=== PATIENT | female | born 1970 | race Caucasian/White ===

== ENCOUNTER 2016-10-13 10:27 | Day surgery (SDC) | payer OTHER ==
[2016-10-13] VITALS (14 sets, daily range): BP systolic 126–160; BP diastolic 58–75; PULSE 67–88; RESP 15–25; Ht 165.1 cm; Wt 105.9 kg
[~2016-10-13] VITALS: Ht 165.1 cm; Wt 105.9 kg
[2016-10-13] MEDS ORDERED: BUPIVACAINE 0.25% (MPF) 30 ML INJ ONE (13:20)
[2016-10-13] MEDS ORDERED: CEFAZOLIN 1 GM INJ ONE (13:42)
[2016-10-13] MEDS ORDERED: ROCURONIUM 50 MG INJ ONE (13:42)
[2016-10-13] MEDS ORDERED: GLYCOPYRROLATE 0.4 MG INJ ONE (13:42)
[2016-10-13] MEDS ORDERED: NEOSTIGMINE 3 MG/3 ML SYRINGE ONE (13:42)
[2016-10-13] MEDS ORDERED: PROPOFOL 20 ML ONE (13:42)
[2016-10-13] MEDS ORDERED: DEXAMETHASONE 4 MG/ML 1 ML INJ ONE (13:43)
[2016-10-13] MEDS ORDERED: FENTAnyl 50 MCG/ML VIAL ONE ×2 (13:43→14:18)
[2016-10-13] MEDS ORDERED: MIDAZOLAM 1 MG/ML 2 ML INJ ONE (13:43)
[2016-10-13] MEDS ORDERED: ONDANSETRON 4 MG INJ ONE (13:43)
[2016-10-13] MEDS ORDERED: IPRATROPIUM (NEB) 0.5 MG/2.5 ML AMP HHN PRN (14:00)
[2016-10-13] MEDS ORDERED: DIPHENHYDRAMINE 50 MG INJ IV PRN (14:00)
[2016-10-13] MEDS ORDERED: HYDROmorphONE (0.2 MG/ML) 10ML SYG IV PRN ×3 (14:00)
[2016-10-13] MEDS ORDERED: TRIMETHOBENZAMIDE 100 MG/ML VIAL IM PRN (14:00)
[2016-10-13] MEDS ORDERED: ALBUTEROL 0.083% (NEB) 2.5 MG/3 ML AMP HHN PRN (14:00)
[2016-10-13] MEDS ORDERED: FENTAnyl 50 MCG/ML VIAL IV PRN ×3 (14:00)
[2016-10-13] MEDS ORDERED: ONDANSETRON 4 MG INJ IV PRN (14:00)
[2016-10-13] MEDS ORDERED: OXYCODONE/ACETAMINOPHEN (5/325) TAB PO PRN ×2 (14:00)
[2016-10-13] MEDS ORDERED: EPHEDrine SULFATE 50 MG/5 ML SYG IV PRN (14:00)
[2016-10-13] MEDS ORDERED: LABETALOL HCL 20MG INJ IV PRN (14:00)
[2016-10-13] MEDS ORDERED: MEPERIDINE 25 MG INJ IV PRN (14:00)
[2016-10-13] MEDS ORDERED: hydrALAzine 20 MG INJ IV PRN (14:00)
[2016-10-13] MEDS ORDERED: MIDAZOLAM 1 MG/ML 2 ML INJ IV PRN (14:00)
[2016-10-13] MEDS ORDERED: LABETALOL HCL 20MG INJ ONE (14:21)
[2016-10-13] MEDS ORDERED: SUGAMMADEX SODIUM 200 MG/2 ML VIAL IV ONE (14:37)
--- NOTE | 2016-10-13 14:50 | OPR ---
Date/Time of Note Date/Time of Note DATE: 10/13/16 TIME: 14:46 Operative Report Procedure Date: Oct 13, 2016 Preoperative Diagnosis symptomatic gallstones Postoperative Diagnosis same Operation Performed 1. laparoscopic cholecystectomy 2. therapeutic injection of subcutaneous marcaine Surgeon: Kathy STORM Anesthesia Type: general Estimated Blood Loss: 10 - 50 ml's Specimens gallbladder Grafts/Implants: none Complications: no Indications This is a 46-year-old female with traumatic gallstones. She required surgical excision of her gallbladder. Risks alternatives benefits and percent were discussed the patient. Patient's best understanding and consents to the operation. Procedure Description Patient is taken to the OR and prepped and draped in usual sterile fashion. Surgical timeout was performed. IV antibiotics are given. Infraumbilical transverse incision is made with a 15 blade. Dissection cautery was carried onto the fascia. The fascia was grasped with [place]'s and divided with curved Armstrong scissors. Balloon Sosa trocar is introduced and pneumoperitoneum is established. Midepigastric 12 mm optical trocar was placed under direct visualization. Right upper quadrant right upper flank 5 mm optical trochars were placed under direct visualization. Upon initial inspection there are some adhesions to the gallbladder which were taken down bluntly. The fundus of the gallbladder was grasped and the gallbladder was retracted in the lateral and outward direction. Lateral dissection was initiated with cautery to allow mobilization of the gallbladder. The cystic duct was carefully dissected out and the critical view was established. Due to the thickened cystic duct this was divided using a 35 mm echelon vascular stapler. The staple line was reinforced with clips. The cystic artery was divided with 3 clips proximal 1 clip distal. The gallbladder was taken of the gallbladder bed. There is good hemostasis. The gallbladder was retrieved using an Endo Catch bag. Further inspection of the liver revealed no architectural changes and did not want a liver wedge biopsy. The ports removed under direct visualization. Infraumbilical fascial incision was closed with [id number] 0 Vicryl suture. Skin was closed using skin dilcia. Therapeutic subcu times Marcaine was injected through the all port sites. Dry dressings were applied. Kathy STORM Oct 13, 2016 14:49
[2016-10-13] MEDS ORDERED: HYDROCODONE/APAP (5/325) TAB PO ONE (15:00)
== END 2016-10-13 17:37 | disposition home or self-care (01) ==
LOC: SDS 10:27
PROVIDERS: ATTEND Surgery
DX: K80.10 Calculus of gallbladder with chronic cholecystitis without obstruction (principal)
CPT/HCPCS: 47562; 88304; J0690; J1100; J1170; J2175; J2250; J2405; J2710; J3010; Z7512; Z7610

== ENCOUNTER 2016-11-08 06:05 | Inpatient (IN) | payer OTHER ==
[~2016-11-08] VITALS: Ht 162.6 cm; Wt 105.8 kg
[2016-11-08] MEDS ORDERED: KETOROLAC 30 MG INJ IV STA (06:27)
[2016-11-08] MEDS ORDERED: ONDANSETRON 4 MG INJ IV STA (06:27)
--- NOTE | 2016-11-08 07:27 | ERA ---
ER Documentation Chief Complaint Date/Time DATE: 11/08/16 TIME: 07:25 Chief Complaint BIBA abd pain, hx of cholecystectomy; denies N/V HPI 46-year-old female brought in by ambulance complaining of epigastric and right upper quadrant abdominal pain since 2 AM this morning. Patient had recent history of cholecystectomy on 10/13/2016. Patient stated that she had not had abdominal pain since cholecystectomy until this morning. Pain is constant and burning like, similar to her pain prior to cholecystectomy. Her last meal was a ham sandwich at 530 previous evening. Denies fever or chills. Denies vomiting or diarrhea. Denies dysuria. Denies tobacco or alcohol use. ROS All systems reviewed and are negative except as per history of present illness. Medications Home Meds No Active Prescriptions or Reported Meds Allergies Allergies: Coded Allergies: No Known Allergy (Unverified , 10/13/16) PMhx/Soc History of Surgery: Yes Anesthesia Reaction: No Hx Neurological Disorder: No Hx Respiratory Disorders: No Hx Cardiac Disorders: No Hx Psychiatric Problems: No Hx Miscellaneous Medical Probl: No Hx Alcohol Use: No Hx Substance Use: No Hx Tobacco Use: No Physical Exam Vitals Vital Signs Date Time Temp Pulse Resp B/P Pulse Ox O2 Delivery O2 Flow Rate FiO2 11/08/16 06:11 98.6 58 20 129/61 98 Physical Exam General: Well-developed, well-nourished, conscious and coherent, in no distress Skin: Warm and dry without rash, good texture and turgor Head: Normocephalic without evidence of trauma Eyes: Sclera and conjunctivae normal; pupils equal, round, and reactive to light; extraocular movements are intact Chest: Normal AP diameter. Good expansion without retractions. Nontender. Lungs are clear to auscultate bilaterally with good tidal volume Heart: Regular rate and rhythm. No murmur, rub, or gallops heard Abdomen: Soft, right upper quadrant tenderness without masses, guarding, or rebound. Bowel sounds are active. No hepatosplenomegaly Back: Without spinal or CVA tenderness Pelvis: Nontender to palpation and stable to compression Extremities: Full range of motion. Good strength bilaterally. No clubbing, cyanosis, or edema. Peripheral pulses are intact. Sensation intact Neuro: Alert and oriented 4, GCS 15. Cranial nerves grossly intact. Motor and sensory exams nonfocal. Moves all extremities. Speech clear. Gait normal Result Diagram: 11/08/16 0704 11/08/16 0704 Results 24 hrs Laboratory Tests Test 11/08/16 06:50 11/08/16 07:04 Urine Color YELLOW Urine Clarity CLOUDY Urine pH 5.0 Urine Specific [place] 1.027 Urine Ketones NEGATIVEmg/dL Urine Nitrite NEGATIVEmg/dL Urine Bilirubin NEGATIVEmg/dL Urine Urobilinogen 1+mg/dL Urine Leukocyte Esterase NEGATIVELeu/ul Urine Microscopic RBC 45/HPF Urine Microscopic WBC 23/HPF Urine Squamous Epithelial Cells MODERATE/HPF Urine Mucus FEW/HPF Urine Hemoglobin NEGATIVEmg/dL Urine Glucose NEGATIVEmg/dL Urine Total Protein NEGATIVEmg/dl White Blood Count 7.810^3/ul Red Blood Count 4.2310^6/ul Hemoglobin 11.0g/dl Hematocrit 35.3% Mean Corpuscular Volume 83.5fl Mean Corpuscular Hemoglobin 26.0pg Mean Corpuscular Hemoglobin Concent 31.2g/dl Red Cell Distribution Width 15.0% Platelet Count 50899^3/UL Mean Platelet Volume 9.7fl Neutrophils % 62.7% Lymphocytes % 24.5% Monocytes % 7.7% Eosinophils % 3.6% Basophils % 0.5% Nucleated Red Blood Cells % 0.0/100WBC Neutrophils # 4.910^3/ul Lymphocytes # 1.910^3/ul Monocytes # 0.610^3/ul Eosinophils # 0.310^3/ul Basophils # 0.010^3/ul Nucleated Red Blood Cells # 0.010^3/ul Sodium Level 142mmol/L Potassium Level 4.1mmol/L Chloride Level 106mmol/L Carbon Dioxide Level 26mmol/L Anion Gap 14 Blood Urea Nitrogen 16mg/dl Creatinine 0.54mg/dl Glucose Level 128mg/dl Calcium Level 9.2mg/dl Total Bilirubin 0.4mg/dl Direct Bilirubin 0.00mg/dl Indirect Bilirubin 0.4mg/dl Aspartate Amino Transf (AST/SGOT) 137IU/L Alanine Aminotransferase (ALT/SGPT) 116IU/L Alkaline Phosphatase 102IU/L Total Protein 7.7g/dl Albumin 4.4g/dl Globulin 3.30g/dl Albumin/Globulin Ratio 1.33 Lipase 1690U/L Current Medications Medications (Trade) Dose Ordered Sig/Freedom Route PRN Reason Start Time Stop Time Status Last Admin Dose Admin Ketorolac Tromethamine (Toradol) 30 mg ONCE STAT IV 11/08/16 06:27 11/08/16 06:28 DC 11/08/16 07:04 Ondansetron HCl 4 mg 4 mg ONCE STAT IV 11/08/16 06:27 11/08/16 06:28 DC 11/08/16 07:04 Ampicillin Sodium/ Sulbactam Sodium 100 ml @ 100 mls/hr ONCE ONCE IVPB 11/08/16 08:30 11/08/16 09:29 Sodium Chloride (NS) 1,000 ml @ 1,000 mls/hr Q1H STAT IV 11/08/16 08:10 11/08/16 09:09 PROCEDURE: US right upper quadrant abdomen. CLINICAL INDICATION: Abdominal pain TECHNIQUE: Multiple real-time images were acquired of the patient's right upper quadrant abdomen utilizing a high resolution transducer. COMPARISON: None FINDINGS: The liver demonstrates increased echogenicity and enlarged size measuring 20.6 cm without focal lesions. Patent portal vein. Gallbladder is surgically absent. No intrahepatic or extrahepatic biliary dilatation. The common bile duct measures 5 mm in maximal dimension. The visualized portions of the pancreas are normal. The right kidney is normal size with normal echogenicity and morphology. The right kidney measures 11.5 cm. No hydronephrosis or perinephric fluid collections. There are no areas of increased echogenicity to suggest nephrolithiasis. Normal caliber aorta and IVC. No peritoneal free fluid. IMPRESSION: Enlarged echogenic liver consistent with fatty infiltration. Post cholecystectomy. RPTAT:AAJJ Physician Bhanu Date Time Electronically viewed and signed by Physician Bhanu on 11/08/2016 07 :40 MH/ CC: CONNOR ROSA ENGINEER FIRST ASSISTANT Procedures/MDM 46-year-old female with recent history of cholecystectomy presents the ED today for severe, sudden onset epigastric and right upper quadrant abdominal pain. Gallbladder ultrasound showed a enlarged echogenic liver consistent with fatty infiltration, gallbladder surgically absent, common bile duct distended. The visualized portion of the pancreas are normal. No hydronephrosis or your lithiasis are seen. CBC is unremarkable. Patient's LFTs elevated with AST 137, and ALT 116. Lipase is markedly elevated at 1690. Patient likely have developed acute pancreatitis. She will need to be admitted for further management. Patient is given Toradol IV in the ED for pain, patient reports pain relief after Toradol. She is signed out to Dr. Boston for admission. Condition: Stable CONNOR ROSA NP Nov 08, 2016 07:27
[2016-11-08 07:30] LABS: BASOPHILS % 0.5 % (0.0-2.0); EOSINOPHILS # 0.3 10^3/ul (0.0-0.5); EOSINOPHILS % 3.6 % (0.0-7.0); HEMATOCRIT 35.3 % (37.0-47.0); LYMPHOCYTES # 1.9 10^3/ul (0.8-2.9); LYMPHOCYTES % 24.5 % (15.0-51.0); MEAN CORPUSCULAR HGB CONC 31.2 g/dl (32.0-37.0); MEAN CORPUSCULAR VOLUME 83.5 fl (82.0-101.0); MEAN PLATELET VOLUME 9.7 fl (7.4-10.4); MONOCYTE # 0.6 10^3/ul (0.3-0.9); MONOCYTES % 7.7 % (0.0-11.0); NEUTROPHIL # 4.9 10^3/ul (1.6-7.5); NEUTROPHILS % 62.7 % (39.0-77.0); PLATELET COUNT 169 10^3/UL (140-415); RED BLOOD COUNT 4.23 10^6/ul (4.20-5.40); WHITE BLOOD COUNT 7.8 10^3/ul (4.8-10.8)
--- NOTE | 2016-11-08 07:40 | RADRPT ---
PROCEDURE: US right upper quadrant abdomen. CLINICAL INDICATION: Abdominal pain TECHNIQUE: Multiple real-time images were acquired of the patient's right upper quadrant abdomen utilizing a high resolution transducer. COMPARISON: None FINDINGS: The liver demonstrates increased echogenicity and enlarged size measuring 20.6 cm without focal lesi ons. Patent portal vein. Gallbladder is surgically absent. No intrahepatic or extrahepatic biliary d ilatation. The common bile duct measures 5 mm in maximal dimension. The visualized portions of the pancreas are normal. The right kidney is normal size with normal echogenicity and morphology. The right kidney measures 11.5 cm. No hydronephrosis or perinephric fluid collections. There are no ar eas of increased echogenicity to suggest nephrolithiasis. Normal caliber aorta and IVC. No peritonea l free fluid. IMPRESSION: Enlarged echogenic liver consistent with fatty infiltration. Post cholecystectomy. RPTAT:AAJJ Physician Bhanu Date Time Electronically viewed and signed by Physician Bhanu on 11/08/2016 07:40 /
[2016-11-08 07:42] LABS: ALBUMIN 4.4 g/dl (3.3-4.9); ALBUMIN/GLOBULIN RATIO 1.33; BILIRUBIN,INDIRECT 0.4 mg/dl (0-1.1); BILIRUBIN,TOTAL 0.4 mg/dl (0.2-1.3); CALCIUM 9.2 mg/dl (8.4-10.2); CREATININE 0.54 mg/dl (0.44-1.00); POTASSIUM 4.1 mmol/L (3.5-5.1); TOTAL PROTEIN 7.7 g/dl (6.1-8.1)
[2016-11-08 07:45] LABS: ADD UMIC YES; UR ASCORBIC ACID NEGATIVE (NEGATIVE); UR BILIRUBIN (Dip) NEGATIVE (NEGATIVE); UR BLOOD (Dip) NEGATIVE (NEGATIVE); UR CLARITY CLOUDY (CLEAR); UR COLOR YELLOW (YELLOW); UR GLUCOSE (Dip) NEGATIVE (NEGATIVE); UR KETONES (Dip) NEGATIVE (NEGATIVE); UR LEUKOCYTE ESTERASE (Dip) NEGATIVE Leu/ul (NEGATIVE); UR MUCUS FEW /HPF (NONE SEEN); UR NITRITE (Dip) NEGATIVE (NEGATIVE); UR NONSQUAMOUS EPITHELIAL CELL 18 /HPF (NONE SEEN); UR RBC 45 /HPF (0-5); UR SPECIFIC GRAVITY (Dip) 1.027 (1.003-1.030); UR SQUAMOUS EPITHELIAL CELL MODERATE /HPF (FEW); UR TOTAL PROTEIN (Dip) NEGATIVE (NEGATIVE); UR UROBILINOGEN (Dip) 1+ mg/dL (NEGATIVE)
[2016-11-08] MEDS ORDERED: SOD CHLORIDE 0.9% 1,000 ML IV STA (08:10)
[2016-11-08] MEDS ORDERED: AMPICILLIN/SULB 3 GM/NS (PMX) 100 ML IVPB ONE (08:30)
[2016-11-08] MEDS ORDERED: ONDANSETRON 4 MG INJ IV PRN ×2 (09:00→09:30)
[2016-11-08] MEDS ORDERED: ACETAMINOPHEN 325 MG TAB PO PRN (09:00)
[2016-11-08] MEDS ORDERED: morphine 2 MG INJ IV PRN (09:30)
[2016-11-08] MEDS ORDERED: NACL 0.9% 3 ML SYG IV SCH (09:30)
[2016-11-08 10:16] VITALS: TEMP 99
--- NOTE | 2016-11-08 10:17 | HP ---
Date/Time of Note Date/Time of Note DATE: 11/08/16 TIME: 10:12 Assessment/Plan VTE Prophylaxis VTE Prophylaxis Intervention: SCD's Assessment/Plan Chief Complaint/Hosp Course 1. Acute abdominal pain. Evidence of acute pancreatitis. The patient has prior history of cholelithiasis and the patient is status post laparoscopic cholecystectomy. The patient will be evaluated for any underlying choledocholithiasis. The patient denies any history of alcohol abuse. The patient will also be evaluated for any underlying hypertriglyceridemia. Patient will be kept n.p.o. The patient will be aggressively hydrated using IV fluids. The patient will be provided with adequate pain control. Surgery consult has been obtained. 2. Transaminitis without hyperbilirubinemia. Most probably secondary to #1. Continue management as per #1. 3. Positive urinalysis. The patient denied any urinary symptoms. Will not start any antibiotics unless the patient has symptoms of urinary tract infection. 4. Hypertension. The patient verbalized episodic hypertension. The patient does not take any medications regularly at home. We will monitor the patient's blood pressure closely. Plan: The patient will be admitted to inpatient medical/surgical floor. The patient will be kept NPO. The patient will be started on DVT prophylaxis. The patient will remain a full code. Activities will be as tolerated. The rest of the patient's management will be based on the clinical course, inputs from consultants, and the results of diagnostic studies. Based on the patient's clinical presentation, he most probably requires at least 1 midnight's stay for further management and evaluation of his clinical presentation. The case and management of this patient was fully discussed with Dr. Mayberry. Problems: HPI/ROS Admit Date/Time Admit Date/Time Hx of Present Illness Reason for admission: Abdominal pain. Consultants 1. Marlon Helton MD, General Surgery. This is a 46-year-old [place] female with past medical history of symptomatic cholelithiasis status post laparoscopic cholecystectomy on 10/13/2016. The patient had an uneventful postoperative course until the morning of 11/08/2016. On the morning of 11/08/2016, the patient woke up from sleep because of epigastric abdominal pain with radiation to the back that was rated 10/10. There was no associated nausea or vomiting. There was no diarrhea or constipation. The patient denied any fevers, chills,, dysuria, or hematuria. In the emergency room, the patient underwent a gallbladder ultrasound that showed enlarged echogenic liver consistent with fatty infiltration. The gallbladder was surgically absent and there was no evidence of any intra-or extrahepatic biliary dilatation with the common bile duct measuring 5 mm in maximal dimension. The patient had elevated AST and ALT without any evidence of any elevated bilirubin. The patient had a lipase level of 1690. Patient was treated with IV fluids along with analgesics and a single dose Unasyn in the ER. ROS Constitutional: no complaints Eyes: no complaints ENT: no complaints Respiratory: no complaints Cardiovascular: no complaints Gastrointestinal: pain Genitourinary: no complaints Musculoskeletal: no complaints Skin: no complaints Neurologic: no complaints Endocrine: no complaints Lymphatic: no complaints Psychological: no complaints Immunologic: no complaints PMH/Family/Social Past Medical History Medical History: hypertension Past Surgical History Past Surgical Hx: cholecystectomy Social History Alcohol Use: none Smoking Status: Never smoker Drug Use: none Exam/Review of Systems Vital Signs Vitals Vital Signs Date Time Temp Pulse Resp B/P Pulse Ox O2 Delivery O2 Flow Rate FiO2 11/08/16 06:11 98.6 58 20 129/61 98 Exam Exam General: Obese, 46 year-old female lying in bed in no apparent distress. HEENT: Normocephalic, atraumatic. Eyes: Anicteric sclerae, conjunctivae clear. ENT: Nasal septum midline, oral mucosa moist. Neck supple, no JVD noticed. Respiratory: Bilaterally clear breath sounds. No use of accessory muscles of respiration. No adventitious breath sounds. Cardiovascular: S1, S2 heard. No murmurs or gallops. Abdomen: Soft, nontender, and nondistended. Bowel sounds positive in all 4 quadrants. Genitourinary: Deferred. Extremities: No cyanosis, no clubbing, no edema. Peripheral pulses palpable. Neurologic: Cranial nerves II through XII grossly intact. The patient is awake, alert, and oriented. Skin: Normal skin turgor. No skin rashes. Labs Result Diagram: 11/08/16 0704 11/08/16 07 Medications Medications Current Medications Sodium Chloride (NS) 1,000 ml @ 125 mls/hr Q8H IV ; Start 11/08/16 at 10:00 Ondansetron HCl (Zofran Inj) 4 mg Q6H PRN IV NAUSEA AND/OR VOMITING; Start 11/08/16 at 09:30 Acetaminophen/ Hydrocodone Bitart ([place] (5/325)) 1 tab Q6H PRN PO MODERATE PAIN LEVEL 4-6; Start 11/08/16 at 09:30 Morphine Sulfate 2 mg 2 mg Q4H PRN IV SEVERE PAIN LEVEL 7-10; Start 11/08/16 at 09:30 Ceftriaxone Sodium (Rocephin) 50 ml @ 100 mls/hr Q24H IVPB ; Start 11/08/16 at 11:00 Procedures Procedures Gall Bladder Ultrasound IMPRESSION: Enlarged echogenic liver consistent with fatty infiltration. Post cholecystectomy. DOMINIQUE ORELLANA NP Nov 08, 2016 10:17
[2016-11-08 10:30] VITALS: BP 123/58; PULSE 51; RESP 18
[2016-11-08 10:40] VITALS: Ht 162.6 cm; Wt 105.8 kg
[2016-11-08] MEDS ORDERED: CEFTRIAXONE 1 GM/50 ML (PMX) 50 ML IVPB SCH (11:00)
[2016-11-08] MEDS: SOD CHLORIDE 0.9% 1,000 ML IV SCH ×3 (11:56→19:39)
[2016-11-08 14:26] VITALS: BP 119/59; RESP 17
[2016-11-08 14:35] LABS: CHOL/HDL RATIO 6.8 RATIO
--- NOTE | 2016-11-08 17:54 | CONS ---
DATE OF ADMISSION: 11/08/2016 DATE OF CONSULTATION: 11/08/2016 REASON FOR CONSULTATION: This is a 46-year-old female who had acute abdominal pain. She was found on examination and evaluation to have pancreatitis. She had a recent laparoscopic cholecystectomy approximately a month ago. She was evaluated with an ultrasound, which did not show any dilated bile ducts. General Surgery was consulted for evaluation. She denies any vomiting; however, some nausea and acute abdominal pain. No fevers. PAST MEDICAL HISTORY: Hypertension. PAST SURGICAL HISTORY: Laparoscopic cholecystectomy. ALLERGIES: NO KNOWN DRUG ALLERGIES. SOCIAL HISTORY: Denies any smoking or alcohol use. LABORATORY: White blood cell count is 7.8, hemoglobin 11.0, platelet count is 169. Chemistry: Sodium is 142, potassium 4.1, chloride 106, CO2 is 26, BUN 16, creatinine 0.5, glucose 128. T- bili of 0.4, AST is 137, ALT is 115, alk phosphatase is 102. Lipase is 1690, triglycerides of 228. Ultrasound imaging shows gallbladder is absent. No intrahepatic or extrahepatic biliary dilatation. Common bile duct measures 5 mm. PHYSICAL EXAMINATION: GENERAL: A well-nourished female, morbidly obese, with BMI of 40 kg/m2, in no acute distress. VITAL SIGNS: Temperature is 98.0, pulse 60, respiratory rate is 17, blood pressure is 119/59. HEENT: PERRLA, EOMI. HEART: Regular rate and rhythm. ABDOMEN: There is mid epigastric tenderness. No peritoneal signs. No rebound tenderness. EXTREMITIES: Warm. No cyanosis. NEUROLOGICAL: Grossly intact. IMPRESSION AND PLAN: This is a 46-year-old female who had laparoscopic cholecystectomy approximately 1 month ago, presenting with now acute pancreatitis, mild. She had an ultrasound, which did not show any choledocholithiasis or any bile duct dilatation. She is undergoing magnetic resonance cholangiopancreatography for a thorough evaluation. Most likely, this is due to her hypertriglyceridemia; however, would agree with magnetic resonance cholangiopancreatography for further evaluation. General Surgery will continue to follow and keep patient n.p.o. with IV fluids. Dictated By: Hazel Turner /jessy/mingo /Document#: [id number]
[2016-11-08 20:28] VITALS: BP 146/69; RESP 20
[2016-11-08 21:37] LABS: IRON 77 ug/dl (35-150)
[2016-11-08 21:47] LABS: TOTAL IRON BINDING CAPACITY 292 ug/dl (241-421)
[2016-11-09 02:16] VITALS: BP 139/68; RESP 18
[2016-11-09] MEDS: SOD CHLORIDE 0.9% 1,000 ML IV SCH ×4 (04:46→22:23)
[2016-11-09 05:41] LABS: BASOPHILS % 0.5 % (0.0-2.0); EOSINOPHILS # 0.2 10^3/ul (0.0-0.5); EOSINOPHILS % 4.3 % (0.0-7.0); HEMATOCRIT 32.8 % (37.0-47.0); HEMOGLOBIN 10.1 g/dl (12.0-16.0); LYMPHOCYTES # 1.8 10^3/ul (0.8-2.9); MEAN CORPUSCULAR HEMOGLOBIN 25.7 pg (29.0-33.0); MEAN CORPUSCULAR HGB CONC 30.8 g/dl (32.0-37.0); MEAN CORPUSCULAR VOLUME 83.5 fl (82.0-101.0); MEAN PLATELET VOLUME 9.8 fl (7.4-10.4); MONOCYTE # 0.3 10^3/ul (0.3-0.9); MONOCYTES % 5.7 % (0.0-11.0); NEUTROPHIL # 3.2 10^3/ul (1.6-7.5); NEUTROPHILS % 56.6 % (39.0-77.0); PLATELET COUNT 130 10^3/UL (140-415); RED BLOOD COUNT 3.93 10^6/ul (4.20-5.40); RED CELL DISTRIBUTION WIDTH 14.8 % (11.5-14.5); WHITE BLOOD COUNT 5.6 10^3/ul (4.8-10.8)
[2016-11-09 06:00] LABS: ALBUMIN 3.7 g/dl (3.3-4.9); ALBUMIN/GLOBULIN RATIO 1.27; BILIRUBIN,INDIRECT 0.5 mg/dl (0-1.1); BILIRUBIN,TOTAL 0.5 mg/dl (0.2-1.3); CALCIUM 8.4 mg/dl (8.4-10.2); CREATININE 0.57 mg/dl (0.44-1.00); POTASSIUM 3.8 mmol/L (3.5-5.1); TOTAL PROTEIN 6.6 g/dl (6.1-8.1)
--- NOTE | 2016-11-09 08:00 | RADRPT ---
PROCEDURE: MRCP. CLINICAL INDICATION: Abdominal pain, pancreatitis. TECHNIQUE: MRCP was performed. Patient was examined without contrast. 3-D coronal rotating MIP i mages of the biliary tree are available for review. COMPARISON: Ultrasound, 11/08/2016 FINDINGS: The gallbladder is surgically absent. There is no intra or extrahepatic biliary dilatation. No commo n duct stone, stricture or filling defect is identified. Pancreatic duct is normal in caliber. Hepatomegaly (21 cm) and splenomegaly (14 cm) are noted, without evidence of focal mass. Trace amoun t of peripancreatic edema is seen, concerning for mild acute pancreatitis. No evidence of focal panc reatic mass is identified. Adrenal glands and kidneys are unremarkable except for small benign renal cysts. There is no obstructive uropathy. The stomach is partially collapsed, but appears grossly unremarkable. Abdominal aorta is normal in c aliber. There is no retroperitoneal or chika hepatis lymphadenopathy. Small amount of upper abdomina l ascites is present. No bowel obstruction or abscess is identified. The surrounding osseous structu res are remarkable for degenerative enthesopathy of the spine. IMPRESSION: 1. Gallbladder is surgically absent. No biliary dilatation or choledocholithiasis is identified. 2. Hepatosplenomegaly is noted, without evidence of focal mass. 3. Trace amount of peripancreatic edema is seen, concerning for mild acute pancreatitis - correlate with serum enzymes. 4. Small amount of upper abdominal ascites is noted. RPTAT: AAOO .Tai Lee MD, Date Time Electronically viewed and signed by .Tai Lee MD, MD on 11/09/2016 07:59 .R/
[2016-11-09 08:05] VITALS: BP 118/56; RESP 18
[2016-11-09] MEDS: HYDROCODONE/APAP (5/325) TAB PO PRN ×2 (11:44→17:40)
[2016-11-09] MEDS ORDERED: INFLUENZA VIRUS VACCINE 0.5 ML SYG IM* ONE (12:00)
--- NOTE | 2016-11-09 13:47 | PN ---
Date/Time of Note Date/Time of Note DATE: 11/09/16 TIME: 13:45 Assessment/Plan VTE Prophylaxis VTE Prophylaxis Intervention: SCD's Lines/Catheters IV [facility] Peripheral IV Urinary Cath still in place: No Assessment/Plan Chief Complaint/Hosp Course s/p lap jose m one month ago with acute pancreatitis without evidence of biliary etiology advance diet as tolerated and possible dc tomorrow Problems: Subjective 24 Hr Interval Summary Free Text/Dictation MRCP negative for biliary etiology for pancreatitis, no nausea no vomiting Exam/Review of Systems Vital Signs Vitals Vital Signs Date Time Temp Pulse Resp B/P Pulse Ox O2 Delivery O2 Flow Rate FiO2 11/09/16 08:05 98.4 63 18 118/56 95 11/08/16 10:30 Room Air Intake and Output 11/08/16 11/08/16 11/09/16 15:00 23:00 07:00 Intake Total 1000 ml 1050 ml Balance 1000 ml 1050 ml Exam abd soft nontender Results Result Diagram: 11/09/16 0511 11/09/16 0508 Results 24 hrs Laboratory Tests Test 11/09/16 05:08 11/09/16 05:11 Sodium Level 143 Potassium Level 3.8 Chloride Level 109 Carbon Dioxide Level 27 Anion Gap 11 Blood Urea Nitrogen 10 Creatinine 0.57 Glucose Level 91 Calcium Level 8.4 Phosphorus Level 3.6 Magnesium Level 1.8 Total Bilirubin 0.5 Direct Bilirubin 0.00 Indirect Bilirubin 0.5 Aspartate Amino Transf (AST/SGOT) 155 H Alanine Aminotransferase (ALT/SGPT) 274 H Alkaline Phosphatase 107 Total Protein 6.6 # Albumin 3.7 Globulin 2.90 Albumin/Globulin Ratio 1.27 Amylase Level 37 Lipase 48 White Blood Count 5.6 # Red Blood Count 3.93 L Hemoglobin 10.1 L Hematocrit 32.8 L Mean Corpuscular Volume 83.5 Mean Corpuscular Hemoglobin 25.7 L Mean Corpuscular Hemoglobin Concent 30.8 L Red Cell Distribution Width 14.8 H Platelet Count 130 #L Mean Platelet Volume 9.8 Neutrophils % 56.6 Lymphocytes % 32.0 Monocytes % 5.7 Eosinophils % 4.3 Basophils % 0.5 Nucleated Red Blood Cells % 0.0 Neutrophils # 3.2 Lymphocytes # 1.8 Monocytes # 0.3 Eosinophils # 0.2 Basophils # 0.0 Nucleated Red Blood Cells # 0.0 Medications Medications Current Medications Sodium Chloride (NS) 1,000 ml @ 150 mls/hr Q6H40M IV Last administered on 11/09 13:08; Admin Dose 150 MLS/HR; Start 11/08/16 at 10:00 Ondansetron HCl (Zofran Inj) 4 mg Q6H PRN IV NAUSEA AND/OR VOMITING; Start 11/08/16 at 09:30 Acetaminophen/ Hydrocodone Bitart ([place] (5/325)) 1 tab Q6H PRN PO MODERATE PAIN LEVEL 4-6 Last administered on 11/09/16 11:44; Admin Dose 1 TAB; Start at 09:30 Morphine Sulfate (morphine) 2 mg Q4H PRN IV SEVERE PAIN LEVEL 7-10; Start 11/08 at 09:30 Kathy STORM Nov 09, 2016 13:47
--- NOTE | 2016-11-09 13:56 | PN ---
Date/Time of Note Date/Time of Note DATE: 11/09/16 TIME: 13:53 Assessment/Plan VTE Prophylaxis VTE Prophylaxis Intervention: SCD's Lines/Catheters IV [facility]ter Type (from [facility]): Peripheral IV Urinary Cath still in place: No Assessment/Plan Chief Complaint/Hosp Course 1. Acute pancreatitis. Etiology unclear. MRCP negative for any choledocholithiasis. The patient is status post cholecystectomy. The patient has no history of any EtOH abuse. The patient was noted to have underlying hypertriglyceridemia (228), which is unlikely to cause acute pancreatitis. Pancreatic enzyme levels has been normalized. To be started on a diet. Surgery following. Will reinforce a low-cholesterol diet. Obtain dietary consult. 2. Transaminitis without hyperbilirubinemia. Most probably secondary to #1. Continue management as per #1. 3. Positive urinalysis. The patient denied any urinary symptoms. Will not start any antibiotics unless the patient has symptoms of urinary tract infection. 4. Hypertension. The patient verbalized episodic hypertension. The patient does not take any medications regularly at home. We will monitor the patient's blood pressure closely. 5. Dyslipidemia. Low-cholesterol diet advised. Registered dietitian to see the patient. 6. Obesity. Weight reduction advised. 7. Fluids, electrolytes, and nutrition. Continue IV hydration. To start the patient on a soft diet. 8. Plan. Continue IV hydration. Start the patient on soft diet and advance as tolerated. Trend LFTs and pancreatic enzymes. Dietary consult. Case discussed with Dr. Mayberry. Problems: Subjective 24 Hr Interval Summary Free Text/Dictation Denies any abdominal pain. Denies nausea or vomiting. Exam/Review of Systems Vital Signs Vitals Vital Signs Date Time Temp Pulse Resp B/P Pulse Ox O2 Delivery O2 Flow Rate FiO2 11/09/16 08:05 98.4 63 18 118/56 95 11/08/16 10:30 Room Air Intake and Output 11/08/16 11/08/16 11/09/16 15:00 23:00 07:00 Intake Total 1000 ml 1050 ml Balance 1000 ml 1050 ml Exam General: Obese, 46 year-old female lying in bed in no apparent distress. HEENT: Normocephalic, atraumatic. Eyes: Anicteric sclerae, conjunctivae clear. ENT: Nasal septum midline, oral mucosa moist. Neck supple, no JVD noticed. Respiratory: Bilaterally clear breath sounds. No use of accessory muscles of respiration. No adventitious breath sounds. Cardiovascular: S1, S2 heard. No murmurs or gallops. Abdomen: Soft, nontender, and nondistended. Bowel sounds positive in all 4 quadrants. Genitourinary: Deferred. Extremities: No cyanosis, no clubbing, no edema. Peripheral pulses palpable. Neurologic: Cranial nerves II through XII grossly intact. The patient is awake, alert, and oriented. Skin: Normal skin turgor. No skin rashes. Results Result Diagram: 11/09/16 0511 11/09/16 0508 Results 24 hrs Laboratory Tests Test 11/09/16 05:08 11/09/16 05:11 Sodium Level 143 Potassium Level 3.8 Chloride Level 109 Carbon Dioxide Level 27 Anion Gap 11 Blood Urea Nitrogen 10 Creatinine 0.57 Glucose Level 91 Calcium Level 8.4 Phosphorus Level 3.6 Magnesium Level 1.8 Total Bilirubin 0.5 Direct Bilirubin 0.00 Indirect Bilirubin 0.5 Aspartate Amino Transf (AST/SGOT) 155 H Alanine Aminotransferase (ALT/SGPT) 274 H Alkaline Phosphatase 107 Total Protein 6.6 # Albumin 3.7 Globulin 2.90 Albumin/Globulin Ratio 1.27 Amylase Level 37 Lipase 48 White Blood Count 5.6 # Red Blood Count 3.93 L Hemoglobin 10.1 L Hematocrit 32.8 L Mean Corpuscular Volume 83.5 Mean Corpuscular Hemoglobin 25.7 L Mean Corpuscular Hemoglobin Concent 30.8 L Red Cell Distribution Width 14.8 H Platelet Count 130 #L Mean Platelet Volume 9.8 Neutrophils % 56.6 Lymphocytes % 32.0 Monocytes % 5.7 Eosinophils % 4.3 Basophils % 0.5 Nucleated Red Blood Cells % 0.0 Neutrophils # 3.2 Lymphocytes # 1.8 Monocytes # 0.3 Eosinophils # 0.2 Basophils # 0.0 Nucleated Red Blood Cells # 0.0 Medications Medications Current Medications Sodium Chloride (NS) 1,000 ml @ 150 mls/hr Q6H40M IV Last administered on 11/09t 13:08; Admin Dose 150 MLS/HR; Start 11/08/16 at 10:00 Ondansetron HCl (Zofran Inj) 4 mg Q6H PRN IV NAUSEA AND/OR VOMITING; Start 11/08/16 at 09:30 Acetaminophen/ Hydrocodone Bitart ([place] (5/325)) 1 tab Q6H PRN PO MODERATE PAIN LEVEL 4-6 Last administered on 11/09/16t 11:44; Admin Dose 1 TAB; Start at 09:30 Morphine Sulfate (morphine) 2 mg Q4H PRN IV SEVERE PAIN LEVEL 7-10; Start 11/08 at 09:30 DOMINIQUE ORELLANA NP Nov 09, 2016 13:56
[2016-11-09 14:03] VITALS: BP 126/61; RESP 16
[2016-11-09 20:10] VITALS: BP 118/61; RESP 18
[2016-11-10] MEDS: SOD CHLORIDE 0.9% 1,000 ML IV SCH ×2 (02:01→08:26)
[2016-11-10 02:06] VITALS: BP 118/61; RESP 18
[2016-11-10 07:24] LABS: BASOPHILS % 0.4 % (0.0-2.0); EOSINOPHILS # 0.3 10^3/ul (0.0-0.5); EOSINOPHILS % 6.1 % (0.0-7.0); HEMOGLOBIN 9.9 g/dl (12.0-16.0); LYMPHOCYTES # 1.6 10^3/ul (0.8-2.9); LYMPHOCYTES % 29.3 % (15.0-51.0); MEAN CORPUSCULAR HEMOGLOBIN 25.6 pg (29.0-33.0); MEAN CORPUSCULAR HGB CONC 30.9 g/dl (32.0-37.0); MEAN CORPUSCULAR VOLUME 82.7 fl (82.0-101.0); MEAN PLATELET VOLUME 9.5 fl (7.4-10.4); MONOCYTE # 0.4 10^3/ul (0.3-0.9); MONOCYTES % 6.6 % (0.0-11.0); NEUTROPHIL # 3.2 10^3/ul (1.6-7.5); NEUTROPHILS % 56.7 % (39.0-77.0); PLATELET COUNT 134 10^3/UL (140-415); RED BLOOD COUNT 3.87 10^6/ul (4.20-5.40); WHITE BLOOD COUNT 5.6 10^3/ul (4.8-10.8)
[2016-11-10 07:40] VITALS: BP 124/62; RESP 18
[2016-11-10 07:52] LABS: MAGNESIUM 1.8 mg/dl (1.7-2.5); PHOSPHORUS 3.7 mg/dl (2.5-4.9)
[2016-11-10 07:54] LABS: ALBUMIN 3.6 g/dl (3.3-4.9); ALBUMIN/GLOBULIN RATIO 1.12; BILIRUBIN,INDIRECT 0.2 mg/dl (0-1.1); BILIRUBIN,TOTAL 0.2 mg/dl (0.2-1.3); CALCIUM 8.9 mg/dl (8.4-10.2); CREATININE 0.52 mg/dl (0.44-1.00); POTASSIUM 3.6 mmol/L (3.5-5.1); TOTAL PROTEIN 6.8 g/dl (6.1-8.1)
--- NOTE | 2016-11-10 12:04 | PDOCDIS ---
Discharge Instructions DIAGNOSIS Discharge Diagnosis Acute pancreatitis. Dyslipidemia. CONDITION Patient Condition: Stable HOME CARE INSTRUCTIONS: Diet Instructions: Low Fat /Cholesterol FOLLOW UP/APPOINTMENTS Follow-up Plan Ben Draper MD Specialty: Internal Medicine Office Address: [address] [place], [place] [id number] Office OTHER ORDERS: Other Orders: 1. Take a low-cholesterol diet. 2. Activities as tolerated. 3. Follow-up with your primary care physician in 2-4 weeks. If you do not have a primary care physician, please call Dr. Ben Draper's office. DOMINIQUE ORELLANA NP Nov 10, 2016 12:04
--- NOTE | 2016-11-10 12:16 | DS ---
Date/Time of Note Date/Time of Note DATE: 11/10/16 TIME: 12:12 Discharge Summary Admission/Discharge Info Admit Date/Time Nov 08, 2016 at 08:42 Discharge Date/Time Discharge Diagnosis 1. Acute pancreatitis. 2. Transaminitis without hyperbilirubinemia. 3. Dyslipidemia. 4. Obesity Patient Condition: Stable Consults 1. Marlon Helton MD, General Surgery. Procedures MRCP IMPRESSION: 1. Gallbladder is surgically absent. No biliary dilatation or choledocholithiasis is identified. 2. Hepatosplenomegaly is noted, without evidence of focal mass. 3. Trace amount of peripancreatic edema is seen, concerning for mild acute pancreatitis - correlate with serum enzymes. 4. Small amount of upper abdominal ascites is noted. Gallbladder Ultrasound IMPRESSION: Enlarged echogenic liver consistent with fatty infiltration. Post cholecystectomy. Hx of Present Illness Reason for admission: Abdominal pain. Consultants 1. Marlon Helton MD, General Surgery. This is a 46-year-old [place] female with past medical history of symptomatic cholelithiasis status post laparoscopic cholecystectomy on 10/13/2016. The patient had an uneventful postoperative course until the morning of 11/08/2016. On the morning of 11/08/2016, the patient woke up from sleep because of epigastric abdominal pain with radiation to the back that was rated 10/10. There was no associated nausea or vomiting. There was no diarrhea or constipation. The patient denied any fevers, chills, dysuria, or hematuria. In the emergency room, the patient underwent a gallbladder ultrasound that showed enlarged echogenic liver consistent with fatty infiltration. The gallbladder was surgically absent and there was no evidence of any intra-or extrahepatic biliary dilatation with the common bile duct measuring 5 mm in maximal dimension. The patient had elevated AST and ALT without any evidence of any elevated bilirubin. The patient had a lipase level of 1690. Patient was treated with IV fluids along with analgesics and a single dose Unasyn in the ER. Hospital Course The patient was admitted to inpatient setting. The patient was kept n.p.o. She was provided with adequate pain control. The patient was aggressively hydrated using IV fluids. The reason for the patient's underlying acute pancreatitis remained unclear. The patient is not an alcoholic. The patient's MRCP was negative for any choledocholithiasis or biliary dilatation. The patient is status post cholecystectomy on 10/13/2016. The patient had minimal elevation of triglycerides [228], which is unlikely to cause the underlying pancreatitis. Therefore, it was concluded that the patient's acute pancreatitis could be idiopathic in origin. The patient's pancreatitis improved with the treatment strategy. The patient's surgeon who did the laparoscopic cholecystectomy was following the patient. The patient was started on a soft diet and the patient's diet was advanced as tolerated to a regular consistency diet without any significant gastrointestinal symptoms. She was noticed to have underlying transaminitis without any hyperbilirubinemia , most probably secondary to underlying pancreatitis. The patient has underlying dyslipidemia with elevated triglycerides and elevated total cholesterol and low HDL. The patient was advised on low- cholesterol diet. The patient was seen by a registered dietitian. Ideally, the patient needs weight reduction and dietary control for cholesterol lowering. There is no indication for any treatment for hypertriglyceridemia since the patient's triglycerides are not significantly elevated. The patient was cleared by general surgery to be discharged home. The patient denied any complaints at the time of discharge. Discharge Instructions 1. Take a low-cholesterol diet. 2. Activities as tolerated. 3. Follow-up with your primary care physician in 2-4 weeks. If you do not have a primary care physician, please call Dr. Ben Draper's office. The patient verbalized understanding of her discharge instructions. At this time I would like to thank of seeing the patient and providing clinical recommendations. Case discussed with Dr. Mayberry. Home Meds No Active Prescriptions or Reported Meds Follow-up Plan Ben Draper MD Specialty: Internal Medicine Office Address: [address] [place] [address] Office Primary Care Provider Reyes Noe Time spent on discharge: > 30 minutes Pending Labs Laboratory Tests Test 11/10/16 06:22 White Blood Count 5.610^3/ul (4.8-10.8) Red Blood Count 3.8710^6/ul (4.20-5.40) Hemoglobin 9.9g/dl (12.0-16.0) Hematocrit 32.0% (37.0-47.0) Mean Corpuscular Volume 82.7fl (82.0-101.0) Mean Corpuscular Hemoglobin 25.6pg (29.0-33.0) Mean Corpuscular Hemoglobin Concent 30.9g/dl (32.0-37.0) Red Cell Distribution Width 15.0% (11.5-14.5) Platelet Count 65465^3/UL (140-415) Mean Platelet Volume 9.5fl (7.4-10.4) Neutrophils % 56.7% (39.0-77.0) Lymphocytes % 29.3% (15.0-51.0) Monocytes % 6.6% (0.0-11.0) Eosinophils % 6.1% (0.0-7.0) Basophils % 0.4% (0.0-2.0) Nucleated Red Blood Cells % 0.0/100WBC (0.0-0.0) Neutrophils # 3.210^3/ul (1.6-7.5) Lymphocytes # 1.610^3/ul (0.8-2.9) Monocytes # 0.410^3/ul (0.3-0.9) Eosinophils # 0.310^3/ul (0.0-0.5) Basophils # 0.010^3/ul (0.0-0.1) Nucleated Red Blood Cells # 0.010^3/ul (0.0-0.0) Sodium Level 141mmol/L (135-144) Potassium Level 3.6mmol/L (3.5-5.1) Chloride Level 107mmol/L (97-110) Carbon Dioxide Level 27mmol/L (21-31) Anion Gap 11 (8-16) Blood Urea Nitrogen 8mg/dl (7-20) Creatinine 0.52mg/dl (0.44-1.00) Glucose Level 103mg/dl (70-220) Calcium Level 8.9mg/dl (8.4-10.2) Phosphorus Level 3.7mg/dl (2.5-4.9) Magnesium Level 1.8mg/dl (1.7-2.5) Total Bilirubin 0.2mg/dl (0.2-1.3) Direct Bilirubin 0.00mg/dl (0.00-0.20) Indirect Bilirubin 0.2mg/dl (0-1.1) Aspartate Amino Transf (AST/SGOT) 54IU/L (15-46) Alanine Aminotransferase (ALT/SGPT) 198IU/L (13-69) Alkaline Phosphatase 86IU/L (42-121) Total Protein 6.8g/dl (6.1-8.1) Albumin 3.6g/dl (3.3-4.9) Globulin 3.20g/dl (1.3-3.2) Albumin/Globulin Ratio 1.12 Amylase Level 39U/L (11-123) Lipase 44U/L (23-300) DOMINIQUE ORELLANA NP Nov 10, 2016 12:16 DOMINIQUE ORELLANA NP Nov 10, 2016 12:16
== END 2016-11-10 14:10 | disposition home or self-care (01) | DRG 439 ==
LOC: FTE 06:05 → PP2 08:42
PROVIDERS: ADMIT Internal Medicine; ATTEND Internal Medicine
DX: K85.90 Acute pancreatitis without necrosis or infection, unspecified (principal); Z68.41 Body mass index [BMI] 40.0-44.9, adult; I10 Essential (primary) hypertension; E78.5 Hyperlipidemia, unspecified; E66.9 Obesity, unspecified; Z90.49 Acquired absence of other specified parts of digestive tract
CPT/HCPCS: 36415; 74181; 76705; 80053; 80061; 81001; 82150; 82728; 83036; 83540; 83690; 83735; 84100; 85025; 87086; 90686; 96374; 96375; J0295; J1885; J2405; J7030

== ENCOUNTER 2018-05-12 23:30 | Emergency (ER) | payer OTHER ==
[~2018-05-12] VITALS: Wt 107.0 kg
[2018-05-13 01:00] VITALS: BP 146/73; PULSE 85; RESP 18
--- NOTE | 2018-05-13 02:16 | ERD ---
ER Documentation Chief Complaint Chief Complaint states took 3 tab of hctz 12.5mg this am by mistake, c/o dizziness HPI This is a 47-year-old female with a past medical history of hypertension who excellently took extra tablets of her hydrochlorothiazide and felt dizzy earlier today. The patient had a recent dental procedure completed and was prescribed steroids for swelling from the procedure. The patient thought that she was taking the steroid medicine and mixed up her tablet bottles. The patient felt lightheaded earlier in the day, but this has since resolved. She feels back to baseline now. Her blood pressure is stable. The patient denies feeling sick recently. The patient denies fever or chills. The patient has had no headache or vision changes. The patient does not endorse neck or back pain. The patient denies lightheadedness or dizziness now. The patient has had no chest pain or trouble breathing. The patient denies nausea or vomiting. The patient denies abdominal pain. The patient denies changes to bowel movements or urination. The patient has had no focal deficits. The patient has had no weakness or numbness or tingling to the face or extremities. ROS All systems reviewed and are negative except as per history of present illness. Medications Home Meds No Active Prescriptions or Reported Meds Allergies Allergies: Coded Allergies: No Known Allergy (Unverified , 11/08/16) PMhx/Soc History of Surgery: Yes (Cholecystectomy, dental surgery) Anesthesia Reaction: No Hx Neurological Disorder: No Hx Respiratory Disorders: No Hx Cardiac Disorders: Yes (HTN) Hx Psychiatric Problems: No Hx Miscellaneous Medical Probl: No Hx Alcohol Use: No Hx Substance Use: No Hx Tobacco Use: No Smoking Status: Never smoker FmHx Family History: No diabetes Physical Exam Vitals Vital Signs Date Temp Pulse Resp B/P (MAP) Pulse Ox O2 O2 Flow FiO2 Time Delivery Rate 05/13/18 85 18 146/73 96 Room Air 01:00 (97) 05/12/18 98.3 96 18 138/82 98 23:45 (100) Physical Exam Const: No apparent distress, well-developed, well-nourished Head: Normocephalic. Ecchymosis to the right side of the face. Eyes: Normal Conjunctiva. Extraocular movements intact. Pupils equal, round and reactive to light ENT: Normal External Ears, Nose. Multiple teeth have been extracted with sutures in the right upper gum. Neck: Full range of motion. No meningismus. Resp: Clear to auscultation bilaterally, No wheezes, rales or rhonchi Cardio: Regular rate and rhythm. No murmurs, rubs or gallops Abd: Soft, non tender, non distended. Normal bowel sounds Skin: No petechiae or rashes Back: No midline tenderness. No CVA tenderness Ext: No cyanosis, or edema Neur: Awake and alert, oriented 4. Cranial nerves intact. No facial droop. Normal strength, sensation and coordination. Psych: Normal Mood and Affect Procedures/MDM MDM The patient's presentation warrants further investigation. Previous medical records, if available, were reviewed. EKG EKG read by me: Rate/Rhythm: Regular rate and rhythm at a rate of 86 bpm Intervals: Normal [place]: Normal Impression: No evidence of acute ischemia or arrhythmia TREATMENT/DISPOSITION The patient presents after a presyncopal event. The patient admits to accidentally taking too much of her HCTZ, which is the likely etiology of her symptoms earlier today. The patient's symptoms have resolved, and the patient's blood pressure is stable. The patient has a reassuring physical exam. The patient is not clinically orthostatic. The patient is not dizzy. I have decreased suspicion for vertigo. The patient has no signs of emergent or symptomatic anemia. I doubt an emergent electrolyte or metabolic emergencies. I have decrease suspicion for a thyroid disorder. The patient is not toxic appearing. I have decreased suspicion for an infectious etiology of symptoms. The patient's EKG is reassuring. I have low suspicion for acute coronary syndrome. I do not see evidence of any emergent cardiac arrhythmia, which includes but is not limited to heart block, Brugada syndrome or WPW. The patient has no heart murmurs or rales. I have low suspicion for hypertrophic cardiomyopathy. I do not see evidence of CHF. The patient does not endorse any chest or pleuritic pain. The history is negative for bleeding or clotting disorders. The patient has not been involved in any recent prolonged trips or surgeries or hospitalizations. The patient has no calf tenderness or swelling. I have decreased suspicion for PE as the etiology of symptoms. The patient has no focal deficits. The neurologic exam is reassuring. I have decreased suspicion for cerebral ischemia. There was no trauma or injury. There is no personal or family history of cerebral aneurysm. I have decreased suspicion for SAH or other ICH. I have low suspicion for temporal arteritis, cavernous venous thrombosis, subdural hematoma, epidural hematoma, meningitis. The patient did not require emergent treatment. DISCHARGE Upon reevaluation of the patient, symptoms have improved. No emergent diagnoses were identified. At this time, I feel that the patient stable for discharge. The patient was instructed to follow-up with a primary care physician in 1-3 days. The patient will be given strict precautions with which to return to the emergency department. Prescriptions: None The patient's blood pressure was elevated at greater than 120/80 while in the emergency department. The patient was otherwise stable with no evidence of hypertensive urgency or emergency. The patient does not require admission for blood pressure control. I have discussed with the patient the risks of hyp ertension. I have instructed the patient to return to the ER for any new or worsening symptoms including chest pain, shortness of breath, headache, blurred vision, confusion, nausea, vomiting or LOC. I have advised the patient to follow up with the primary care physician for outpatient monitoring and treatment for hypertension in 1-3 days. Disclaimer: Inadvertent spelling and grammatical errors are likely due to EHR/dictation software use and do not reflect on the overall quality of patient care. Note that the electronic time recorded on this note does not necessarily reflect the actual time of the patient encounter. Departure Diagnosis: Primary Impression: Pre-syncope Additional Impression: Lightheaded Condition: DARIAN Marti MD May 13, 2018 02:16
== END 2018-05-13 03:05 | disposition home or self-care (01) ==
LOC: E/R 23:30
DX: R55 Syncope and collapse (principal); I10 Essential (primary) hypertension